=== PATIENT | male | born 1985 | race Caucasian/White ===

== ENCOUNTER 2016-11-27 03:49 | Emergency (ER) | payer SELFPAY ==
[~2016-11-27] VITALS: Ht 167.6 cm; Wt 57.0 kg
[~2016-11-27 03:49] MED LIST: Z.0.NO CURRENT MEDS
[2016-11-27 03:50] VITALS: BP 123/78; PULSE 84; RESP 16; TEMP 98; O2SAT 97
[2016-11-27 04:22] VITALS: BP 119/71; PULSE 95; RESP 20; O2SAT 96
[2016-11-27] MEDS ORDERED: ONDANSETRON HCL 4 MG/2 ML VIAL IV ONE ×2 (04:45→06:15)
[2016-11-27] MEDS ORDERED: SODIUM CHLOR 0.9% 1000 ML INJ 1,000 ML IV ONE ×2 (04:45→06:15)
[2016-11-27 05:19] LABS: AUTOMATED NEUTROPHIL # 8.9 TH/MM3 (1.8-7.7); BASOPHIL % 0.3 % (0.0-2.0); HEMATOCRIT 49.1 % (39.0-51.0); HEMO FLAGS DIFF FINAL; LYMPH % 10.5 % (9.0-44.0); LYMPHOCYTE # 1.1 TH/MM3 (1.0-4.8); MEAN CELL VOLUME 85.1 FL (80.0-100.0); MEAN CORPUSCULAR HGB CONC 35.3 % (32.0-36.0); NEUT % 86.2 % (16.0-70.0); PLATELET COUNT 212 TH/MM3 (150-450); RED BLOOD COUNT 5.77 MIL/MM3 (4.50-5.90); RED CELL DISTRIBUTION WIDTH 12.6 % (11.6-17.2); WHITE BLOOD COUNT 10.3 TH/MM3 (4.0-11.0)
[2016-11-27 05:28] VITALS: BP 110/67; PULSE 88; RESP 18; O2SAT 98
[2016-11-27 05:40] LABS: ALT (GPT) 16 U/L (12-78); ANION GAP 11 MEQ/L (5-15); AST (GOT) 15 U/L (15-37); BICARBONATE 26.8 MEQ/L (21.0-32.0); BLOOD UREA NITROGEN 10 MG/DL (7-18); CHLORIDE 100 MEQ/L (98-107); GLOMERULAR FILTRATION RATE 88 ML/MIN (>89); SODIUM (NA) 138 MEQ/L (136-145)
[2016-11-27 05:42] LABS: ALKALINE PHOSPHATASE 71 U/L (45-117); TOTAL BILIRUBIN ADULT 0.9 MG/DL (0.2-1.0)
[2016-11-27 05:45] VITALS: BP 107/65; PULSE 80; RESP 17; O2SAT 97
[2016-11-27] MEDS ORDERED: ZOFR4TAB3 SL (06:44)
--- NOTE | 2016-11-27 06:45 | PD ---
HPI Chief Complaint: GI Complaint Time Seen by Provider: 04:41 Travel History International Travel<30 days: No Contact w/Intl Traveler<30days: No Traveled to known affect area: No History of Present Illness HPI The patient is a 31 year old male who presents to the [facility] emergency department with a history of nausea, vomiting, and diarrhea that began yesterday after eating lunch at approximately 2 PM. The patient reports that others ate the same meal and have not been sick. He denies having any other sick contacts, foreign travel, recent antibiotic use, or unusual food intake. The patient has had vomiting too many times to count, diarrhea twice. He reports that his stool is green in color. He denies having any mucus or blood in his stool. The patient reports having a generalized abdominal cramping prior to having diarrhea or vomiting. He denies having any focal abdominal pain. The patient denies any recent fevers, cough, congestion, neck pain, chest pain, shortness of breath, urinary symptoms, or neurologic symptoms. PFSH Past Medical History Narrative Medical The patient's past medical history is reportedly significant for peptic ulcer status post treatment with antibiotic many years ago. Ulcer: Yes (GASTRIC) Past Surgical History Narrative Surgical The patient's past surgical history is reportedly significant for toe surgery related to an ingrown toenail. Social History Alcohol Use: No (rarely, 1 time per month) Tobacco Use: No Substance Use: Yes (marijuana 3 times a week) Allergies-Medications (Allergen,Severity, Reaction): Coded Allergies: No Known Allergies (Verified , 11/27/16) Reported Meds & Prescriptions Reported Meds & Active Scripts Active Zofran Odt (Ondansetron Odt) 4 Mg Tab 4 Mg SL Q6HR PRN Review of Systems Except as stated in HPI: all other systems reviewed are Neg General / Constitutional: No: Fever Eyes: No: Visual changes HENT: No: Headaches Cardiovascular: No: Chest Pain or Discomfort Respiratory: No: Shortness of Breath Gastrointestinal: Positive: Nausea, Vomiting, Diarrhea, Abdominal Pain, Changes in Bowel Habits, No: Hematemesis, Hematochezia, Constipation, Indigestion, Loss of Appetite Genitourinary: No: Dysuria Musculoskeletal: No: Pain Skin: No Rash Neurologic: No: Weakness Psychiatric: No: Depression Endocrine: No: Polydipsia Hematologic/Lymphatic: No: Easy Bruising Physical Exam Narrative General: The patient is a well-developed well-nourished male in no acute distress. Head and Neck exam: Head is normocephalic atraumatic. Eyes: EOMI, pupils are equal round and reactive to light. Nose: Midline septum with pink mucous membranes Mouth: Dentition unremarkable. Tacky mucus membranes. Posterior oropharynx is not erythematous. No tonsillar hypertrophy. Uvula midline. Airway patent. Neck: No palpable lymphadenopathy. No nuchal rigidity. No thyromegaly. Cardiovascular: Sinus tachycardia in the low 100 without murmurs, gallops, or rubs. No pulse deficit to the extremities. Lungs: Clear to auscultation bilaterally. No wheezes, rhonchi, or rales. Abdomen: Soft, without tenderness to palpation in all 4 quadrants of the abdomen. No guarding, rebound, or rigidity. Normal bowel sounds are audible. No tenderness on palpation of McBurney's point. Negative [place] sign. Extremities: No clubbing, cyanosis, or edema. No calf tenderness on palpation. Back: No spinous process tenderness to palpation. No costovertebral angle tenderness to palpation. Neurologic Exam: Grossly nonfocal. Skin Exam: No rash noted. Intact skin that is warm and dry. Data Data Last Documented VS Vital Signs Date Time Temp Pulse Resp B/P Pulse Ox O2 Delivery O2 Flow Rate FiO2 11/27/16 05:45 80 17 107/65 97 Room Air 11/27/16 03:50 98.0 Orders Complete Blood Count With Diff (11/27/16 04:42) Comprehensive Metabolic Panel (11/27/16 04:42) C-Reactive Protein (Crp) (11/27/16 04:42) Lipase (11/27/16 04:42) Urinalysis - C+S If Indicated (11/27/16 04:42) Chest, Single Ap (11/27/16 04:42) Iv Access Insert/Monitor (11/27/16 04:42) Ecg Monitoring (11/27/16 04:42) Oximetry (11/27/16 04:42) Lactic Acid (11/27/16 04:42) Sodium Chlor 0.9% 1000 Ml Inj (Ns 1000 M (11/27/16 04:45) Ondansetron Inj (Zofran Inj) (11/27/16 04:45) Sodium Chlor 0.9% 1000 Ml Inj (Ns 1000 M (11/27/16 06:15) Ondansetron Inj (Zofran Inj) (11/27/16 06:15) Oral Rehydration (11/27/16 06:08) Labs Laboratory Tests Test 11/27/16 11/27/16 05:00 05:38 White Blood Count 10.3 TH/MM3 Red Blood Count 5.77 MIL/MM3 Hemoglobin 17.3 GM/DL Hematocrit 49.1 % Mean Corpuscular Volume 85.1 FL Mean Corpuscular Hemoglobin 30.0 PG Mean Corpuscular Hemoglobin 35.3 % Concent Red Cell Distribution Width 12.6 % Platelet Count 212 TH/MM3 Mean Platelet Volume 8.3 FL Neutrophils (%) (Auto) 86.2 % Lymphocytes (%) (Auto) 10.5 % Monocytes (%) (Auto) 3.0 % Eosinophils (%) (Auto) 0.0 % Basophils (%) (Auto) 0.3 % Neutrophils # (Auto) 8.9 TH/MM3 Lymphocytes # (Auto) 1.1 TH/MM3 Monocytes # (Auto) 0.3 TH/MM3 Eosinophils # (Auto) 0.0 TH/MM3 Basophils # (Auto) 0.0 TH/MM3 CBC Comment DIFF FINAL Differential Comment Sodium Level 138 MEQ/L Potassium Level 4.0 MEQ/L Chloride Level 100 MEQ/L Carbon Dioxide Level 26.8 MEQ/L Anion Gap 11 MEQ/L Blood Urea Nitrogen 10 MG/DL Creatinine 1.00 MG/DL Estimat Glomerular Filtration 88 ML/MIN Rate Random Glucose 91 MG/DL Lactic Acid Level 1.5 mmol/L Calcium Level 9.9 MG/DL Total Bilirubin 0.9 MG/DL Aspartate Amino Transf 15 U/L (AST/SGOT) Alanine Aminotransferase 16 U/L (ALT/SGPT) Alkaline Phosphatase 71 U/L C-Reactive Protein LESS THAN 0.29 MG/DL Total Protein 8.7 GM/DL Albumin 5.0 GM/DL Lipase 126 U/L Urine Color YELLOW Urine Turbidity HAZY Urine pH 6.0 Urine Specific [place] 1.034 Urine Protein 100 mg/dL Urine Glucose (UA) NEG mg/dL Urine Ketones 150 mg/dL Urine Occult Blood NEG Urine Nitrite NEG Urine Bilirubin NEG Urine Urobilinogen 2.0 MG/DL Urine Leukocyte Esterase TRACE Urine RBC LESS THAN 1 /hpf Urine WBC 2 /hpf Urine Squamous Epithelial 1 /hpf Cells Urine Bacteria OCC /hpf Urine Mucus MANY /lpf Microscopic Urinalysis Comment CULT NOT INDICATED MDM Medical Decision Making Medical Screen Exam Complete: Yes Emergency Medical Condition: Yes Medical Record Reviewed: Yes Interpretation(s) Last Impressions Chest X-Ray 11/27/16 0442 Signed Impressions: Service Date/Time: Sunday, November 27, 2016 05:24 - CONCLUSION: Normal examination for a patient of this age. Jw Linton MD Differential Diagnosis Viral versus bacterial gastroenteritis, versus electrolyte derangements, versus dehydration, versus cyclic vomiting syndrome, versus gastroparesis Narrative Course During the course of the patients emergency department visit, the patients history, examination, and differential diagnosis were reviewed with the patient. The patient had IV access obtained and blood work sent for analysis. The patient was placed on a manager of disaster recovery with oximetry and blood pressure monitoring. The patient was initially provided normal saline 1 L IV fluid bolus which was repeated 1, Zofran 4 mg IV which was also repeated 1, oral rehydration therapy was then started. The patients laboratory studies were reviewed and remarkable for a white count of 10.3, hemoglobin 17.3, platelets 212 with 86.2 neutrophils, lymphocytes 10.5 , CMP is unremarkable, C-reactive protein less than 0.29, lactic acid 1.5, lipase 126, urinalysis showed no acute abnormality. Radiology studies were reviewed and remarkable for a chest x-ray that showed no acute abnormality. The patient tolerated oral rehydration therapy. The patient will be discharged home with a prescription for Zofran. The patient was instructed to push fluids and get plenty of rest. The patient was instructed to push fluids with an electrolyte rich solution such as Gatorade or Pedialyte. The patient is resting comfortably and feels better, is alert and in no distress. The patients results and examination findings were discussed with the patient. The repeat examination is unremarkable and benign. The history, exam, diagnostic testing, and current condition do not suggest any significant pathology to warrant further testing, continued ED treatment, admission, or surgical evaluation at this point. The vital signs have been stable. The patient does not have uncontrollable pain, intractable vomiting, or other significant symptoms. The patient's condition is stable and appropriate for discharge. The patient will pursue further outpatient evaluation with a primary care physician or other designated or consulting physician as indicated in the discharge instructions. The patient expressed understanding and was agreeable with this plan. Diagnosis Primary Impression: Nausea, vomiting, and diarrhea Referrals: Primary Care Physician 3 days Patient Instructions: Acute Diarrhea (ED), Acute Nausea and Vomiting (ED), General Instructions Scripts Ondansetron Odt (Zofran Odt)4 Mg Tab4 Mg SL Q6HR PRN (Nausea/Vomiting) #7 TAB Ref 0 Prov:Michelle Novak MD 11/27/16 Disposition: 01 DISCHARGE HOME Condition: Stable Michelle Novak MD Nov 27, 2016 06:45
[2016-11-27 06:53] LABS: BACTERIA, URINE OCC /hpf; BLOOD, URINE NEG (NEG); COMMENT (UR) CULT NOT INDICATED; CULTURE IF INDICATED CULT NOT INDICATED; GLUCOSE,URINE NEG (NEG); KETONE, URINE 150 mg/dL (NEG); MUCUS URINE MANY /lpf (OCC); NITRITE,URINE NEG (NEG); SQUAMOUS EPITHELIAL CELL URINE 1 /hpf (0-5); URINE COLOR YELLOW (YELLW/STRAW)
--- NOTE | 2016-11-27 06:58 | RADRPT ---
EXAM DATE/TIME: 11/27/2016 05:24 [place] COMPARISON: No previous studies available for comparison. INDICATIONS : Vomiting, cough, chest pain. MEDICAL HISTORY : None. SURGICAL HISTORY : None. ENCOUNTER: Initial ACUITY: 2 days PAIN SCORE: 4/10 LOCATION: chest FINDINGS: A single view of the chest demonstrates the lungs to be symmetrically aerated without evidence of mas s, infiltrate or effusion. The cardiomediastinal contours are unremarkable. Osseous structures are intact. CONCLUSION: Normal examination for a patient of this age. Jw Linton MD on November 27, 2016 at 6:56 Board Certified Radiologist. This report was verified electronically.
[2016-11-27 07:11] VITALS: BP 114/74; PULSE 78; RESP 18; O2SAT 98
== END 2016-11-27 07:33 | disposition home or self-care (01) ==
LOC: NEPE 03:49
DX: R11.2 Nausea with vomiting, unspecified (principal); R19.7 Diarrhea, unspecified; R00.0 Tachycardia, unspecified; F12.90 Cannabis use, unspecified, uncomplicated
CPT/HCPCS: 71010; 80053; 81001; 83605; 83690; 85025; 86140; 96361; 96374; 96376; 99284; J2405; J7030